=== PATIENT | female | born 1970 | race Caucasian/White ===

== ENCOUNTER 2016-10-13 10:44 | Emergency (ER) | payer BC ==
--- NOTE | 2016-10-24 21:34 | ER ---
ADMIT: 10/13/2016 RM/LOC: ER [facility] MR#: [id number] [address] [id number] DAVID CASPER [address] [place] [id number] Emergency Room Report SEX: F AGE: 46 : 1970 DATE: 10/13/2016 HISTORY OF PRESENT ILLNESS: A 46-year-old female that awoke with palpitations and later developed chest discomfort and chest pain while at work. She described it as a sharp, sometimes pressure sensation in the substernal area, at times possibly radiating into the back. At its maximum it was a 5, currently at 2, it was not associated with any activity, is not exacerbated by anything. No nausea or vomiting. No diaphoresis. No cold clammy feeling. Walking exacerbated the discomfort in anyway. PAST MEDICAL HISTORY: Significant for mitral valve prolapse, which she had an echocardiogram done approximately 18 years ago. PHYSICAL EXAMINATION: GENERAL: A 46-year-old female, in no acute distress. Alert and pleasant, currently rating the pain at a 2/10 with no radiation. LUNGS: Clear to auscultation bilaterally. CARDIOVASCULAR: Regular rate and rhythm. No murmurs, rubs, or gallops. ABDOMEN: Soft and nontender. Positive bowel sounds. No masses, guarding, or rebound. EXTREMITIES: Unremarkable. DIAGNOSTIC DATA: EKG showed no acute changes. Cardiac workup was initiated. Four baby aspirin were given. The initial set of enzymes were negative 6 hours after the onset of her complaints. Repeat cardiac markers were obtained, those were negative as well. The patient remained asymptomatic in the emergency Department, subsequently discharged, placed on 48-hour Holter monitor. Encouraged to follow up with primary doctor. She was also found to have anemia with a hemoglobin of 8.1; however, she did say she had heavy periods than has had in the past. She is also encouraged to follow up with the primary doctor concerning her apparent menorrhagia with dysfunctional uterine bleeding. DISCHARGE DIAGNOSES: 1. Palpitations. 2. Atypical chest pain. 3. Anemia. Ryan Castillo MD/ [facility] JOB #: [id number] CC: Ryan Castillo MD, Attending Physician UNKNOWN, Family Physician
== END 2016-10-13 15:40 | disposition home or self-care (01) ==
LOC: ER 10:44
DX: R07.89 Other chest pain (principal); R00.2 Palpitations; D64.9 Anemia, unspecified